=== PATIENT | male | born 1985 | race Caucasian/White ===

== ENCOUNTER 2025-04-04 15:14 | Outpatient (CLI) | payer BC, SELFPAY | END 2025-04-04 15:15 | disposition home or self-care (01) | PROVIDERS: PCP Internal Medicine; Visit Provider Internal Medicine | DX: Z13.9 Encounter for screening, unspecified (principal); Z23 Encounter for immunization | CPT/HCPCS: 80053; 80061 ==

== ENCOUNTER 2025-07-06 11:08 | Outpatient (CLI) | payer BC, SELFPAY | END 2025-07-06 11:09 | disposition home or self-care (01) | LOC: NFLDREF 07-11 13:02 | PROVIDERS: PCP Internal Medicine; Referring Provider Internal Medicine; Visit Provider Internal Medicine | DX: K21.9 Gastro-esophageal reflux disease without esophagitis (principal) | CPT/HCPCS: 86900; 86901 ==